=== PATIENT | male | born 1945 | race Caucasian/White ===

== ENCOUNTER → 2016-04-09 | Outpatient (CLI) | payer MEDICARE, OTHER ==
[~2016-04-09] MED LIST: ASP325T PO; BPR75T PO; CEPH500C PO; CLPD75T PO; HCT25T PO; LVT.112T PO; RNT150T PO; SALS750T17 PO; SERT100T PO; TRZ50T PO
--- NOTE | 2016-04-09 10:57 | Diagnostic Imaging Report ---
PA and lateral views of the chest Indication: Cough Findings: The lungs are clear. The heart size is mildly enlarged. There is no effusion or pneumothorax The mediastinum and cait appear unremarkable. Impression: Mild cardiomegaly. Dictated by: Dictated on workstation # [id number]
== END ==
LOC: RAD 10:38
PROVIDERS: ATTEND Family Medicine
DX: R05 Cough (principal)
CPT/HCPCS: 71020

== ENCOUNTER 2019-05-16 19:54 | Emergency (ER) | payer MEDICARE, OTHER ==
[~2019-05-16] VITALS: Ht 175.3 cm; Wt 119.3 kg
[2019-05-16 20:02] VITALS: BP 154/81
--- NOTE | 2019-05-16 20:31 | ED Lower Extremity ---
General Chief Complaint: Laceration Stated Complaint: R LEG LAC Nursing Triage Note: Pt amb to triage with c/o laceration to R lateral leg. Pt repors police captain senior, he was carrying a bag of trash when a piece of broken glass cut his leg. Pt reports to be current on tetanus vaccine. A&OX4. Nursing Sepsis Screen: No Definite Risk Source: patient Exam Limitations: no limitations History of Present Illness Date Seen by Provider: May 16, 2019 Time Seen by Provider: 20:09 Initial Comments This 74-year-old gentleman presents to the emergency room with a laceration on his lateral right lower leg that occurred about 2 hours prior to arrival. He was cleaning up some glass from his mother's home when a piece of glass in the bag he was carrying struck his leg and caused a laceration. He states contents of the back were clean. He has had a tetanus immunization within the last 5 years. He has had continued bleeding since the injury. He takes daily aspirin. There is no active bleeding on initial exam. Allergies and Home Medications Allergies Coded Allergies: Penicillin G (Verified Allergy, Unknown, 08/06/09) Uncoded Allergies: TAPE (Allergy, Unknown, 05/31/10) Home Medications Aspirin 325 Mg Tab, 325 MG PO DAILY, (Reported) Bupropion Hcl 75 Mg Tablet, 75 MG PO BID, (Reported) Cephalexin Monohydrate 500 Mg Capsule, 1 EACH PO QID Prescribed by: MEGAN WELDON on 06/05/10 1150 Clopidogrel 75 Mg Tablet, 1 EACH PO DAILY, (Reported) Hydrochlorothiazide 25 Mg Tab, 25 MG PO DAILY, (Reported) Levothyroxine Sodium 112 Mcg Tablet, 1 TAB PO DAILY, (Reported) Ranitidine Hcl 150 Mg Tablet, 150 MG PO HS PRN, (Reported) Salsalate 750 Mg Tablet, 750 MG PO BID PRN, (Reported) Sertraline Hcl 100 Mg Tablet, 100 MG PO DAILY, (Reported) Trazodone Hcl 50 Mg Tab, 50 MG PO HS PRN, (Reported) Patient Home Medication List Home Medication List Reviewed: Yes Review of Systems Constitutional: no symptoms reported EENTM: no symptoms reported Respiratory: no symptoms reported Cardiovascular: no symptoms reported Gastrointestinal: no symptoms reported Genitourinary: no symptoms reported Musculoskeletal: no symptoms reported Skin: see HPI Psychiatric/Neurological: No Symptoms Reported Past Omneqvd-Rbznda-Afxuto Hx Past Med/Social Hx: Reviewed and Corrections made Patient Social History Alcohol Use: Denies Use Recreational Drug Use: No Smoking Status: Never a Smoker 2nd Hand Smoke Exposure: No Recent Foreign Travel: No Contact w/Someone Who Travel: No Recent Infectious Disease Expo: No Recent Hopitalizations: No Seasonal Allergies Seasonal Allergies: No Past Medical History Surgeries: Yes Gallbladder, Thyroidectomy Respiratory: No Cardiac: Yes Hypertension Neurological: No Genitourinary: No Gastrointestinal: No Musculoskeletal: Yes Arthritis Endocrine: No HEENT: Yes (hard of hearing) Hearing Impairment: Hard of Hearing Cancer: No Psychosocial: Yes Anxiety, PTSD Integumentary: No Physical Exam Vital Signs Vital Signs - First Documented 05/16/19 20:02 Temp 36.7 Pulse 69 Resp 18 B/P (MAP) 154/81 (105) Pulse Ox 97 O2 Delivery Room Air Capillary Refill : Less Than 3 Seconds Height, Weight, BMI Height: '" Weight: lbs. oz. kg; 38.00 BMI Method:Stated General Appearance: WD/WN, no apparent distress HEENT: normal ENT inspection Legs: right leg other (5 cm laceration on the right lateral lower leg with no active bleeding on initial exam. Wound did begin bleeding after cleaning.) Neurologic/Tendon: normal sensation, normal motor functions Neurologic/Psychiatric: alert, normal mood/affect, oriented x 3 Skin: normal color, warm/dry, other (5 cm laceration on the right lateral lower leg) Procedures/Interventions Wound Location: Lower Extremities Wound Length (cm): 5 Wound's Depth, Shape: linear, sub Q Irrigated w/ Saline (ccs): 500 Betadine Prep?: Yes Staple Repair: Stapler Skin Precise Progress Wound was scrubbed with sterile saline and chlorhexidine. It was then irrigated with normal saline. Betadine was applied and 7 dee were applied. Bleeding was controlled with approximation and direct pressure. A pressure dressing was applied. Progress/Results/Core Measures Results/Orders Vital Signs/I&O 05/16/19 20:02 Temp 36.7 Pulse 69 Resp 18 B/P (MAP) 154/81 (105) Pulse Ox 97 O2 Delivery Room Air 2 Blood Pressure Mean: 105 Departure Impression Primary Impression: Laceration of leg Qualified Codes: S81.811A - Laceration without foreign body, right lower leg, initial encounter Disposition: 01 HOME, SELF-CARE Condition: Improved Departure-Patient Inst. Decision time for Depature: 20:29 Referrals: ALVARO CARRASCO MD (PCP/Family) Primary Care Physician Patient Instructions: Laceration Repair With Clark (DC) Add. Discharge Instructions: Leave the pressure dressing on until you are able to get home and elevate your leg. Elevate your leg to the level of your heart is much as possible for the next couple of days. Expect some oozing from the wound. If there is reji bleeding, apply direct pressure and elevate for 20 minutes. If this does not stop the bleeding, return to care. Keep the wound clean and dry except for normal showering. Do not submerge until dee are removed. You may allow soapy water to run over the wound but do not scrub directly over the dee. You may take Tylenol (acetaminophen) for pain. You may use up to 1000 mg every 6 hours as needed. You may leave the wound open to air when at rest but cover when in dirty environments or when you are active. Change your dressing daily or more often if needed. If dressing sticks to the wound, soak with a small amount of clean tap water for a few minutes and then removed. Monitor the wound for signs of infection such as increasing redness, increasing swelling, puslike drainage, or fever. Return to care promptly if you notice any of these problems. Return to the emergency room in 7-10 days to have the dee removed. You do not need an appointment. All discharge instructions reviewed with patient and/or family. Voiced understanding. IFRAH LOO MD May 16, 2019 20:31
== END 2019-05-16 20:34 | disposition home or self-care (01) ==
LOC: EDUNIT# 19:54 → ER 19:55
DX: S81.811A Laceration without foreign body, right lower leg, initial encounter (principal); I10 Essential (primary) hypertension; F41.9 Anxiety disorder, unspecified; Z79.82 Long term (current) use of aspirin; Z79.02 Long term (current) use of antithrombotics/antiplatelets; Z88.0 Allergy status to penicillin; Z88.8 Allergy status to other drugs, medicaments and biological substances; W25.XXXA Contact with sharp glass, initial encounter
CPT/HCPCS: 12002

== ENCOUNTER 2022-07-14 13:53 | Emergency (ER) | payer MEDICARE, OTHER ==
[~2022-07-14] VITALS: Ht 175 cm; Wt 121.0 kg
--- NOTE | 2022-07-14 14:18 | ED Cough/URI ---
General Chief Complaint: Cough/Cold/Flu Symptoms Stated Complaint: FEVER | COUGH | Nursing Triage Note: PT CO OF COUGH AND COLD SX, STATES STARTED HAVING COUGH AND LOW GRADE FEVERS. Source: patient Exam Limitations: no limitations History of Present Illness Date Seen by Provider: July 14, 2022 Time Seen by Provider: 14:15 Initial Comments Patient is a 77-year-old male with a history of hypertension, coronary artery disease who presents ED with nasal congestion, sinus pressure, and cough. Patient states symptoms started this past Tuesday. Reports feeling congestion and cold-like symptoms. Started developing a cough productive without shortness of breath. Woke up this morning with Rales. Rales appear to improve after coughing. Denies of any specific chest pain abdominal pain, headache, dizziness, shortness of beath, vomiting, diarrhea. Low-grade temperature at home. Up-to-date on his COVID and influenza vaccines. Denies history of COPD or asthma, smoking. Patient denies of any peripheral edema Allergies and Home Medications Allergies Coded Allergies: Penicillin G (Verified Allergy, Unknown, 08/06/09) Uncoded Allergies: TAPE (Allergy, Unknown, 05/31/10) Patient Home Medication List Home Medication List Reviewed: Yes Aspirin (Aspirin 325 Mg Tab) 325 Mg Tab, 325 MG PO DAILY, (Reported) Entered as Reported by: ROBBI AVILA on 08/06/092004 Bupropion Hcl (Wellbutrin) 75 Mg Tablet, 75 MG PO BID, (Reported) Entered as Reported by: ROBBI AVILA on 08/06/092004 Cephalexin Monohydrate (Cephalexin) 500 Mg Capsule, 1 EACH PO QID Prescribed by: MEGAN WELDON on 06/05/10 1150 Clopidogrel (Plavix) 75 Mg Tablet, 1 EACH PO DAILY, (Reported) Entered as Reported by: OPAL HERNANDEZ on 05/31/10 1331 Doxycycline Monohydrate (Doxycycline Monohydrate) 100 Mg Tablet, 100 MG PO BID Prescribed by: BRIGDETTE CASTILLO on 07/14/22 1510 Hydrochlorothiazide (Hctz) 25 Mg Tab, 25 MG PO DAILY, (Reported) Entered as Reported by: ROBBI AVILA on 08/06/092004 Levothyroxine Sodium (Levothyroxine 112 Mcg Tab) 112 Mcg Tablet, 1 TAB PO DAILY, (Reported) Entered as Reported by: ROBBI AVILA on 08/06/092004 Ranitidine Hcl (Zantac 150 Mg) 150 Mg Tablet, 150 MG PO HS PRN, (Reported) Entered as Reported by: ROBBI AVILA on 08/06/092004 Salsalate (Salsalate) 750 Mg Tablet, 750 MG PO BID PRN, (Reported) Entered as Reported by: ROBBI AVILA on 08/06/092004 Sertraline Hcl (Sertraline Hcl) 100 Mg Tablet, 100 MG PO DAILY, (Reported) Entered as Reported by: ROBBI AVILA on 08/06/092004 Trazodone Hcl (Desyrel 50 Mg) 50 Mg Tab, 50 MG PO HS PRN, (Reported) Entered as Reported by: ROBBI AVILA on 08/06/092004 Review of Systems Review of Systems Constitutional: No chills, No diaphoresis; fever, malaise, weakness EENTM: other (Nasal congestion); No blurred vision, No double vision Respiratory: cough; No short of breath Cardiovascular: No chest pain, No edema, No palpitations Gastrointestinal: No abdominal pain, No diarrhea, No nausea, No vomiting Genitourinary: No decreased output, No discharge Musculoskeletal: No back pain, No joint pain Skin: No change in color All Other Systems Reviewed Negative Unless Noted: Yes Past Aqyxwcg-Apeceb-Zcvqyq Hx Patient Social History Tobacco Use?: No Substance use?: No Alcohol Use?: No Pt feels they are or have been: No Immunizations Up To Date Influenza Vaccine Up-to-Date: Yes; Up-to-Date First/Initial COVID19 Vaccinat: YES Second COVID19 Vaccination Reji: YES Third COVID19 Vaccination Date: YES Seasonal Allergies Seasonal Allergies: No Past Medical History Surgery/Hospitalization HX: CHRONIC BACK PAIN, PTSD, HEART STENT, THROIDECTOMY , GALL BLADDER, T AND A, NECK PAIN Surgeries: Yes Gallbladder, Thyroidectomy Respiratory: No Cardiac: Yes Hypertension Neurological: No Genitourinary: No Gastrointestinal: No Musculoskeletal: Yes Arthritis Endocrine: No HEENT: Yes (hard of hearing) Hearing Impairment: Hard of Hearing Cancer: No Psychosocial: Yes Anxiety, PTSD Integumentary: No Physical Exam Vital Signs - First Documented 07/14/22 13:59 Temp 36.6 Pulse 63 Resp 16 B/P (MAP) 135/63 (87) Capillary Refill : Less Than 3 Seconds Height: '" Weight: lbs. oz. kg; 39.00 BMI Method:Stated General Appearance: WD/WN, no apparent distress Eyes: Bilateral Eye Normal Inspection, Bilateral Eye PERRL, Bilateral Eye EOMI HEENT: PERRL/EOMI, normal ENT inspection, TMs normal, pharynx normal Neck: non-tender, full range of motion, supple Respiratory: chest non-tender, lungs clear, normal breath sounds, no respiratory distress, no accessory muscle use Cardiovascular: regular rate, rhythm, no edema, no gallop, no JVD Gastrointestinal: normal bowel sounds, non tender, soft, no organomegaly Extremities: normal range of motion, non-tender, normal inspection, no pedal edema 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, no motor/sensory deficits, alert, normal mood/affect, oriented x 3 Skin: normal color, warm/dry Progress/Results/Core Measures Suspected Sepsis SIRS Temperature: Pulse: 63 Respiratory Rate: 16 Blood Pressure 135 /63 Mean: 87 Results/Orders Lab Results Laboratory Tests Test 07/14/22 14:10 Range/Units Influenza Type A (RT-PCR) Not Detected Not Detecte Influenza Type B (RT-PCR) Not Detected Not Detecte SARS-CoV-2 RNA (RT-PCR) Not Detected Not Detecte My Orders Orders - SARAH LUI Covid 19 Inhouse Test (07/14/22 14:06) Influenza A And B By Pcr (07/14/22 14:06) Chest Pa/Lat (2 View) (07/14/22 14:13) Vital Signs/I&O 07/14/22 13:59 Temp 36.6 Pulse 63 Resp 16 B/P (MAP) 135/63 (87) Capillary Refill : Less Than 3 Seconds Blood Pressure Mean: 87 Departure Communication (PCP) Reviewed previous ER visits, H&P, lab testing. Differential diagnosis, pneumonia, sinus infection, viral syndrome. Patient with nasal congestion, sinus pressure and mild cough. Symptoms started on Tuesday. Patient was concern for developing rales in his lung today. No history of COPD or asthma. History of coronary artery disease. Denies chest pain, abdominal pain vomiting, diarrhea. Patient vital signs stable. No respiratory distress. Lung sounds clear bilateral. Exam otherwise benign. COVID influenza was ordered which were negative. He is up-to-date on all of his flu and COVID-vaccine. Chest x-ray was ordered secondary to the Rales which was negative for pneumonia. Discussed conservative treatment at this time. Did prescribe doxycycline as he is allergic to penicillins if symptoms progress or worsen such as sinus pressure, cough or rales at home. If any increased work of breathing, chest pain and no improvement to return back to ED. Follow-up with your PCP in 2 to 3 days for reevaluation. Impression Primary Impression: URI (upper respiratory infection) Disposition: HOME, SELF-CARE Condition: Stable Departure-Patient Inst. Decision time for Depature: 15:10 Referrals: ALVARO CARRASCO MD (PCP/Family) Primary Care Physician Patient Instructions: Upper Respiratory Infection ED Add. Discharge Instructions: Continue with conservative treatment. If symptoms get worse we will have antibiotics at your pharmacy. If increased work of breathing, shortness of breath to return back to All discharge instructions reviewed with patient and/or family. Voiced understanding. Scripts Doxycycline Monohydrate (Doxycycline Monohydrate) 100 Mg Tablet 100 MG PO BID for 7 Days, #14 TAB Prov: SARAH LUI 07/14/22 SARAH LUI July 14, 2022 14:18
--- NOTE | 2022-07-14 15:00 | Diagnostic Imaging Report ---
INDICATION: Cough and cold-like symptoms. EXAMINATION: Two view chest 07/14/2022. COMPARISON: 04/09/2016. FINDINGS: The heart is prominent. Pulmonary vasculature unremarkable. Lungs and pleural spaces clear. IMPRESSION: No acute cardiopulmonary process. Dictated by: Dictated on workstation # [id number]
[2022-07-14] MEDS ORDERED: DOXY100T31 PO (15:10)
[2022-07-14 15:18] VITALS: BP 134/83
== END 2022-07-14 15:18 | disposition home or self-care (01) ==
LOC: EDUNIT# 13:53 → ER 13:57
DX: J06.9 Acute upper respiratory infection, unspecified (principal); Z20.822 Contact with and (suspected) exposure to COVID-19; Z88.0 Allergy status to penicillin
CPT/HCPCS: 71046; 87636